=== PATIENT | female | born 1990 | race African-American/Black ===

== ENCOUNTER 2018-08-04 07:44 | Day surgery (SDC) | payer OTHER ==
[2018-07-29 13:21] VITALS: BMI 31.7
--- NOTE | 2018-08-04 07:07 | HP ---
History & Physical Update - History History: No Change - Physical Physical: No Change - Assessment Assessment: No Change - Plan Plan: No Change (Initial H&P is located in pateint's paper chart. It is complete and accurate by Ksenia Jose MD 07/19/18. No new complaints or medications.)
[~2018-08-04 07:44] MED LIST: CEFAZOLIN 2 GM in DEXTROSE 5%-WATER - 100 ML IVPB ONE; oxyCODONE HCL 10 MG SUSTAINED ACTING TABLET PO STA
[2018-08-04] MEDS ORDERED: SUCCINYLCHOLINE CHLORIDE 200 MG/10 ML VIAL ONE ×2 (08:35→11:31)
[2018-08-04] MEDS ORDERED: MIDAZOLAM HCL 2 MG/2 ML SINGLE DOSE VIAL ONE ×2 (08:35→08:52)
[2018-08-04] MEDS ORDERED: PROPOFOL 20 ML ONE ×7 (08:35→10:38)
[2018-08-04] MEDS ORDERED: ONDANSETRON 4 MG/2 ML VIAL ONE (08:36)
[2018-08-04] MEDS ORDERED: SODIUM CHLORIDE 0.9% P/F 10 ML VIAL IJ ONE (08:36)
[2018-08-04] MEDS ORDERED: ceFAZolin SODIUM 1 GM VIAL ONE (08:36)
[2018-08-04] MEDS ORDERED: LIDOCAINE HCL/PF 2% SDV 5ML VIAL ONE (08:36)
[2018-08-04] MEDS ORDERED: DEXAMETHASONE SOD PHOSPHATE 4 MG/1 ML VIAL ONE (08:36)
[2018-08-04] MEDS ORDERED: LIDOCAINE 1%/EPI 1:100000 (20 ML MULTI DOSE VIAL) ONE (08:36)
[2018-08-04] MEDS ORDERED: BUPIVACAINE HCL/PF (5 MG/ML) 30 ML VIAL IJ ONE (08:52)
[2018-08-04] MEDS ORDERED: KETAMINE HCL 200 MG/20 ML VIAL ONE (09:23)
[2018-08-04] MEDS ORDERED: PHENYLEPHRINE HCL 10 MG/1 ML SINGLE DOSE VIAL ONE (09:53)
[2018-08-04] MEDS ORDERED: LIDOCAINE 1%/EPI 1:100000 (50 ML MULTI DOSE VIAL) INF ONE (10:00)
[2018-08-04] MEDS ORDERED: ePHEDrine SULFATE 50 MG/1 ML AMPULE ONE (10:14)
[2018-08-04] MEDS ORDERED: THROMBIN (RECOMBINANT) 5,000 UNIT VIAL TP ONE (10:20)
[2018-08-04] MEDS ORDERED: ONDANSETRON 4 MG/2 ML VIAL IVPUSH PRN ×2 (10:24→11:17)
[2018-08-04] MEDS ORDERED: PROMETHAZINE HCL 25 MG/1 ML VIAL IVPUSH PRN (10:24)
[2018-08-04] MEDS ORDERED: oxyCODONE HCL 5 MG TABLET PO PRN ×2 (10:24)
[2018-08-04] MEDS ORDERED: GELATIN SPONGE,ABSORBABLE 1 GM PACKET TP ONE (10:34)
[2018-08-04] MEDS ORDERED: THROMBIN (BOVINE) 5,000 UNIT VIAL TP ONE (10:34)
[2018-08-04] MEDS ORDERED: DESFLURANE GAS 240 ML BOTTLE IH ONE (10:39)
[2018-08-04] MEDS ORDERED: KETOROLAC TROMETHAMINE 30 MG/1 ML VIAL IVPUSH PRN (11:17)
--- NOTE | 2018-08-04 11:25 | OP ---
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
--- NOTE | 2018-08-04 11:26 | SURG ---
Surgery Insurance Processing Clerk Note Insurance Processing Clerk: Harman Rivera PA-C Date of Service: 08/04/18 Diagnosis: C5/6 Stenosis with upper extremity radiculopathy Procedure: C5/6 Anterior Cervical Discectomy Fusion, allograft implant, neuromonitoring I was present for the entirety of the operative procedure. For further detail, please refer to operative report. Visit type - Case Type Case Type: Scheduled - New patient This patient is new to me today: Yes Date on this admission: 08/04/18
[2018-08-04] MEDS ORDERED: LACTATED RINGERS SOLUTION 1,000 ML IV SCH (11:30)
[2018-08-04] MEDS ORDERED: KETOROLAC TROMETHAMINE 30 MG/1 ML VIAL ONE (12:26)
--- NOTE | 2018-08-04 12:33 | OP ---
DATE OF OPERATION: 08/04/2018 PREOPERATIVE DIAGNOSIS: Cervical herniated disk, C5-6. POSTOPERATIVE DIAGNOSIS: Cervical herniated disk, C5-6. PROCEDURE PERFORMED: 1. Anterior cervical diskectomy with fusion, C5-6. 2. Placement of instrumentation and cage, C5-6. SURGEON: Raul Evans MD DISPLAY MAKER: DESTINY Mcgarry ESTIMATED BLOOD LOSS: 50 mL. INTRAVENOUS FLUIDS: By Anesthesia. ANESTHESIA: General/MCP block. COMPLICATIONS: There were none. DISPOSITION: Patient brought to the PACU in stable condition. CLINICAL INDICATION: The patient is a 28-year-old female who has been suffering from pain from her neck down her right arm. X-rays and MRI were completed which showed that she had a herniated disk at C5-6 with impingement upon her right C6 nerve root. She had gone through an exhaustive course of treatment for this which included medications, physical therapy, as well as injections. Unfortunately, her pain continued to persist despite all of this. At this point, risks, benefits, and alternatives were discussed, and patient consented to surgery. OPERATIVE NOTE: Patient was brought to the operating room by Anesthesia staff. After appropriate patient identification was performed, general anesthesia was given, and MCP block was also given. The patient was placed supine on the OR bed with her arm tucked in at the side. All areas of bony prominences were well padded at this time. A shoulder roll was placed underneath the shoulder to extend the neck to the point that she could tolerate in the preoperative holding area. A needle was taped onto her neck to carol off the C5-6 level. X-rays taken to confirm this was correct. Needle was removed, and 10 mL of lidocaine with epinephrine was injected into her neck at this time. Her neck was prepped and draped in a sterile manner. At this point, timeout was completed. A 2-inch incision was made on the left side of her neck. Dissection was carried down to the platysma. The platysma was cut in line with the skin incision. Next, an interval between the sternocleidomastoid and strap muscles was developed. Next, interval between the carotid sheath and trachea and esophagus was developed. Peanuts were used to elevate off the prevertebral space. A needle was placed into the C5-6 disk. X-ray was taken to confirm this was correct. The needle was removed. The longus coli muscles were elevated off. Retractor blades were placed in. The [place] pin was placed into the body of C5 and C6. A knife was used to incise the disks and distractor was applied. At this point, the microscope was brought in. The Payne was used to elevate the disk off the endplates. Using a series of pituitaries, Kerrisons, and curettes, diskectomy was completed. Endplates were decorticated at this time. A cage filled with bone graft was placed in. The [place] pins were removed. A screw was placed into the body of C5 and C6. AP and lateral x-rays confirm the instrumentation to be in good position. Final tightening was performed. The platysma was closed with 2-0 Vicryl sutures. The skin was closed with 3-0 Monocryl sutures. Dermabond was applied. Steri-Strips were applied. Sterile dressing was applied. Patient was placed supine on the OR bed, extubated in the OR, and brought to the PACU in stable condition. Melanie BURCIAGA/[id number]
[2018-08-04] MEDS ORDERED: ACETAMINOPHEN 325 MG TABLET (FP) ONE (12:58)
[2018-08-04] MEDS ORDERED: ACETAMINOPHEN 325 MG TABLET (FP) PO SCH (15:00)
[2018-08-04] MEDS ORDERED: CEFAZOLIN 1 GM/D5W 1 GM/50 ML BAG ONE (15:25)
[2018-08-04] MEDS ORDERED: ceFAZolin SODIUM 1 GM VIAL IVPB ONE (15:40)
[2018-08-04] MEDS ORDERED: CEFAZOLIN 1 GM/D5W 1 GRAM/50 ML BAG IVPB ONE (16:00)
[2018-08-04 17:23] VITALS: TEMP 98
[2018-08-04 17:49] VITALS: BP 116/69; PULSE 83
--- NOTE | 2018-08-08 13:31 | PATH ---
Surgical Pathology Report Patient Name: HEATHER MAE [facility]. Rec. #: [id number] /Age/Gender: 1990 (Age: 28) / F Account: [id number] Location: [facility] Taken: 08/04/2018 Received: 08/04/2018 Reported: 08/08/2018 Physicians: Raul Evans M.D. Specimen(s) Received CERVICAL DISC C5-6 Clinical History Cervical stenosis Final Diagnosis CERVICAL DISC, C5-6, DISCECTOMY: CARTILAGE WITH DEGENERATIVE CHANGES. Electronically Signed Yesica Chakraborty M.D. Gross Description Received in formalin labeled "cervical disc C5-6," is a 3.0 x 2.5 x 0.3 cm aggregate of valenz[place]a fragments of fibrocartilaginous tissue. A claim representative portion is submitted in one cassette. /08/04/2018 [facility]/08/04/2018
== END 2018-08-04 18:00 | disposition home or self-care (01) ==
LOC: FASU 07:44
PROVIDERS: ATTEND Orthopaedic Surgery Orthopaedic Surgery of the Spine
PROC: 0RG10A0 Fusion of Cervical Vertebral Joint with Interbody Fusion Device, Anterior Approach, Anterior Column, Open Approach (ICD-10-PCS; 2018-08-04)
PROC: 0RG10K0 Fusion of Cervical Vertebral Joint with Nonautologous Tissue Substitute, Anterior Approach, Anterior Column, Open Approach (ICD-10-PCS; 2018-08-04)
PROC: 0RB30ZZ Excision of Cervical Vertebral Disc, Open Approach (ICD-10-PCS; principal; 2018-08-04 10:09)
DX: M50.222 Other cervical disc displacement at C5-C6 level (principal)
CPT/HCPCS: 22551; 22845; 22853; C1889; 72040-TC; 72050-TC-FY; 76000-TC-FY; 84703; 88304-TC; 94760